=== PATIENT | female | born 1995 | race Two or more races ===

== ENCOUNTER 2018-10-24 20:07 | Outpatient (CLI) | payer MEDICAID ==
[2018-10-24 21:03] LABS: AMORPHOUS SEDIMENT,URINE TRACE /HPF; APPEARANCE,URINE CLOUDY; BILIRUBIN,URINE NEGATIVE (NEGATIVE); COLOR,URINE YELLOW; GLUCOSE, URINE NEGATIVE (NEGATIVE); KETONES,URINE NEGATIVE (NEGATIVE); LEUKOCYTE ESTERASE,URINE NEGATIVE (NEGATIVE); NITRITE,URINE NEGATIVE (NEGATIVE); PROTEIN,URINE NEGATIVE (NEGATIVE); URINE SPECIFIC GRAVITY 1.019; UROBILINOGEN,URINE NEGATIVE mg/dL (<2.0)
[2018-10-24 21:25] LABS: URINE AMPHETAMINES SCREEN NEGATIVE; URINE BARBITURATES SCREEN NEGATIVE; URINE BENZODIAZEPINES SCREEN NEGATIVE; URINE MARIJUANA (THC) SCREEN NEGATIVE; URINE PHENCYCLIDINE SCREEN NEGATIVE
[2018-10-24 21:26] LABS: URINE COCAINE SCREEN NEGATIVE
[2018-10-24 21:27] LABS: URINE METHADONE SCREEN NEGATIVE
== END 2018-10-24 21:36 | disposition home or self-care (01) ==
LOC: LC 20:07
PROVIDERS: ATTEND Obstetrics & Gynecology
PROC: 4A1HXCZ Monitoring of Products of Conception, Cardiac Rate, External Approach (ICD-10-PCS; principal; 2018-10-24)
DX: O47.02 False labor before 37 completed weeks of gestation, second trimester (principal); Z3A.22 22 weeks gestation of pregnancy
CPT/HCPCS: 80307; 81001

== ENCOUNTER 2019-03-02 05:23 | Inpatient (IN) | payer MEDICAID ==
[2019-03-02 06:05] LABS: APPEARANCE,URINE CLEAR; BILIRUBIN,URINE NEGATIVE (NEGATIVE); COLOR,URINE STRAW; GLUCOSE, URINE NEGATIVE (NEGATIVE); KETONES,URINE NEGATIVE (NEGATIVE); LEUKOCYTE ESTERASE,URINE NEGATIVE (NEGATIVE); NITRITE,URINE NEGATIVE (NEGATIVE); PROTEIN,URINE NEGATIVE (NEGATIVE); URINE SPECIFIC GRAVITY 1.005; UROBILINOGEN,URINE NEGATIVE mg/dL (<2.0)
[2019-03-02 06:21] LABS: URINE AMPHETAMINES SCREEN NEGATIVE; URINE BARBITURATES SCREEN NEGATIVE; URINE BENZODIAZEPINES SCREEN NEGATIVE; URINE COCAINE SCREEN NEGATIVE; URINE MARIJUANA (THC) SCREEN NEGATIVE; URINE METHADONE SCREEN NEGATIVE; URINE PHENCYCLIDINE SCREEN NEGATIVE
--- NOTE | 2019-03-02 07:27 | RADIOLOGY REPORT (SQ) ---
Ultrasound OB limited on 03/02/2019 at 7:06 AM CLINICAL INDICATION: Suspected rupture of membranes, evaluate amniotic fluid index COMPARISON: None FINDINGS: Limited sonographic imaging is performed throughout the pelvis by transabdominal approach. Single living intrauterine fetus is noted in cephalic presentation. Cervical length measures approximately 3.1 cm. Placenta is fundal in location with no evidence of placenta previa or abruption. Positive cardiac activity is noted with a heart rate of 141 bpm. Oligohydramnios is noted with amniotic fluid index of only 4.4 cm. measurements for dates were not performed. No other gross abnormality is noted. IMPRESSION: 1. Single living intrauterine fetus in cephalic presentation. 2. Oligohydramnios with amniotic fluid index of 4.4 cm.
[2019-03-02] MEDS ORDERED: RINGERS SOLUTION,LACTATED 300 ML IV ONE (08:11)
[2019-03-02] MEDS ORDERED: OXYTOCIN/NORMAL SALINE 20 UNIT/1,000 ML RTUINJ IV PRN ×2 (08:11→20:49)
[2019-03-02] MEDS ORDERED: PENICILLIN G-K 5 MILLION UNIT VIAL IV ONE (08:12)
[2019-03-02] MEDS ORDERED: PENICILLIN G-K 5 MILLION UNIT VIAL ONE ×3 (08:15→16:21)
[2019-03-02 08:51] LABS: ABSOLUTE BASOPHILS # (AUTO) 0.1 10^3/uL (0.0-0.2); ABSOLUTE EOSINOPHILS # (AUTO) 0.2 10^3/uL (0.0-0.6); ABSOLUTE LYMPHOCYTES (AUTO) 2.4 10^3/uL (0.5-4.7); ABSOLUTE MONOCYTES (AUTO) 0.6 10^3/uL (0.1-1.4); ABSOLUTE NEUT (AUTO) 9.1 10^3/uL (1.7-8.2); BASOPHILS % (AUTO) 0.8 % (0-2); EOSINOPHILS % (AUTO) 1.3 % (0-6); HEMATOCRIT 35.6 % (36.0-47.0); LYMPHOCYTES % (AUTO) 19.6 % (13-45); MEAN CORPUSCULAR HEMOGLOBIN 30.8 pg (27.0-33.4); MEAN CORPUSCULAR HGB CONC 33.9 g/dL (32.0-36.0); MEAN CORPUSCULAR VOLUME 91 fl (80-97); MONOCYTES % (AUTO) 5.2 % (3-13); PLATELET COUNT 173 10^3/uL (150-450); RED BLOOD COUNT 3.92 10^6/uL (3.72-5.28); RED CELL DISTRIBUTION WIDTH 13.8 % (11.5-14.0); SEGMENTED NEUTROPHILS % (AUTO) 73.1 % (42-78); TOTAL CELLS COUNTED % (AUTO) 100 %; WHITE BLOOD COUNT 12.4 10^3/uL (4.0-10.5)
--- NOTE | 2019-03-02 09:50 | Admission Physical ---
Datetime Report Generated by CPN: 03/02/2019 09:50 CURRENT ADMISSION Hx Assessment: The History has been Reviewed and is Current Chief Complaint: Uterine Contractions Indication for Induction: Not Applicable Admit Impression : Term, Intrauterine Admit Plan: Admit to Unit; Initiate Labor Protocol ALLERGIES Medication Allergies: No Medication Allergies: No Known Allergies (03/02/2019) Latex: No Latex Allergies Food Allergies: lactose Environmental Allergies: none OBSTETRICAL HISTORY EDC: 03/02/2019 00:00 : 1 Para: 0 Term: 0 : 0 SAB: 0 IAB: 0 Livin Gestational Diabetes: No Rh Sensitization: No Incompetent Cervix: No MILA: No Infertility: No ART Treatment: No Uterine Anomaly: No IUGR: No Hx Previous C/S: No Macrosomia: No Hx Loss/Stillborn: No PIH: No Hx : No Placenta Previa/Abruption: No Depression/PP Depression: No PTL/PROM: No Post Hemorrhage: No Obstetrical History Comments: G1: current SEE RECORDS Alcohol: No Marijuana : No Cocaine: No Other Illicit Drugs: No Cigarettes: Never Smoker. [id number] MEDICAL HISTORY Diabetes: No Blood Transfusion: No Pulmonary Disease (Asthma, TB): No Breast Disease: No Hypertension: No Character Artist Surgery: No Heart Disease: No Hosp/Surgery: No Autoimmune Disorder: No Anesthetic Complications: No Kidney Disease: No Abnormal Pap Smear: Yes Neuro/Epilepsy: No Psychiatric Disorders: No Other Medical Diseases: No Hepatitis/Liver Disease: No Significant Family History: No Varicosities/Phlebitis: No Trauma/Violence : No Thyroid Dysfunction: No Medical History Comments: - HPV INFECTIOUS HISTORY Gonorrhea: No Genital Herpes: No Chlamydia: No Tuberculosis: No Syphilis: No Hepatitis: No HIV/AIDS Exposure: No Rash or Viral Illness: No HPV: Yes Infectious History Comments: 08/2018: ASCUS with HR HPV PHYSICAL EXAM General: Normal HEENT: Normal Neurologic: Normal Thyroid: Normal Heart: Normal Lungs: Normal Breast: Normal Back: Normal Abdomen: Normal Genitourinary Exam: Normal Extremities: Normal DTRs: Normal Pelvic Type: Adequate Physical Exam Comments: G1 ASCUS Pap, + HPV GBS + FETUS A EGA: 40.0 Monitoring: External US Variability: Moderate 6-25bpm Accelerations: 15X15 Decelerations: None Admit Comment: Admit to LD in early labor, irreg uc's Pitocin augmentation if needed Monitor, anticipate PLANS FOR LABOR AND DELIVERY Labor and Delivery: None Pain Management: None Feeding Preference: Breast Benefit of Breast Feed Discussed: Yes Circumcision: N/A INFORMED CONSENT Assignment: Meryl Sarah De Jesuse, Signature: with User ID: [email or web address] : with User ID: [email or web address]
[2019-03-02] MEDS ORDERED: MISOPROSTOL 0.2 MG TABLET ONE (09:56)
[2019-03-02] MEDS ORDERED: OXYTOCIN 10 UNIT/ML VIAL ONE (09:56)
[2019-03-02] MEDS ORDERED: LIDOCAINE 1% INJ-PF (10 MG/ML) 30 ML SDV ONE (09:56)
[2019-03-02] MEDS ORDERED: OXYTOCIN/NORMAL SALINE 20 UNIT/1,000 ML RTUINJ ONE (09:56)
[2019-03-02] MEDS: RINGERS SOLUTION,LACTATED 1,000 ML IV PRN ×2 (10:04→16:29)
[2019-03-02] MEDS: PENICILLIN G-K 5 MILLION UNIT VIAL IV SCH ×2 (12:15→16:25)
[2019-03-02] MEDS ORDERED: BUPIVACAINE HCL 0.25 % INJ/PF (2.5 MG/1 ML) 30 ML VIAL ONE (13:35)
[2019-03-02] MEDS ORDERED: FENTANYL/BUPIVACAINE/NS/PF 300 MCG/150 ML RTUINJ EPI ONE (13:35)
[2019-03-02] MEDS ORDERED: EPHEDRINE SULFATE INJ 50 MG/1 ML AMPULE ONE (13:35)
[2019-03-02] MEDS ORDERED: ZOLPIDEM TARTRATE 5 MG TABLET PO PRN (20:49)
[2019-03-02] MEDS ORDERED: DIPH/PERTUSS(ACELL)/TETANUS VAC/PF 0.5 ML SYR (>=10YO) IM PRN (20:49)
[2019-03-02] MEDS ORDERED: DIBUCAINE 1% OINTMENT 56 GM TP PRN (20:49)
[2019-03-02] MEDS ORDERED: ACETAMINOPHEN WITH CODEINE #3 TABLET PO PRN ×2 (20:49)
[2019-03-02] MEDS ORDERED: BENZOCAINE/MENTHOL AEROSOL SPRAY 56 ML TOP PRN (20:49)
--- NOTE | 2019-03-02 21:21 | Warning Signs in Babies ---
VOD Warning Signs Datetime Report Generated by [facility]: 03/02/2019 21:21 VOD#608 -Warning Signs in Babies: Needs to be viewed. (10/24/2018 20:11:Nazanin Mesa RN)
--- NOTE | 2019-03-02 21:34 | Warning Signs in Babies ---
VOD Warning Signs Datetime Report Generated by [facility]: 03/02/2019 21:34 VOD#608 -Warning Signs in Babies: Viewed with Parent(s)/Family (10/24/2018 20:11:Nazanin Mesa RN)
--- NOTE | 2019-03-02 21:35 | Delivery Summary ---
Del Sum A-C Datetime Report Generated by CPN: 03/02/2019 21:35 DELIVERY PERSONNEL DELIVERY PERSONNEL: [id number] Delivery Doctor:: Meryl Kennedy MD Labor and Delivery Nurse:: Nazanin Mesa RNmobile lab technician Nurse:: Dania Rosa RN Nursery Nurse:: Silvia Zarate RN MSN Satellite Communications Operator/SUIT ATTENDANT: Geno Irving, ST MATERNAL INFORMATION Delivery Anesthesia: Epidural Medications After Delivery: Pitocin Bolus-Please Comment; Cytotec 1000mcg Per Rectum/Vagina Meds After Delivery Comment: pitocin 20 units in1 L NS bolusing per order Delivery QBL: 300 Maternal Complications: None Provider Comments: of a viable female at 2009 w/ an JEOVANNY presentation w/ shoulder dystocia resolved w/ suprpubic pressure; APGARS 8, 9; 2nd deg midline episiotomy w/ repair LABOR SUMMARY EDC: 03/02/2019 00:00 No. Babies in Womb: 1 Attempted: No Labor Anesthesia: Epidural LABOR INFORMATION Reason for Induction: Oligohydramnios Onset of Labor: 03/02/2019 13:20 Complete Dilatation: 03/02/2019 18:43 Oxytocin: Induction Group B Beta Strep: positive Antibiotics # of Doses: 3 Antibiotics Time of Last Dose: 1624 Name of Antibiotic Given: PCN Steroids Given: None Reason Steroids Not Administered: Not Applicable MEMBRANES Membranes Rupture Method: Spontaneous Rupture of Membranes: 03/02/2019 05:00 Length of Rupture (hr): 15.17 Amniotic Fluid Color: Light Meconium Amniotic Fluid Amount: Small Amniotic Fluid Odor: Normal STAGES OF LABOR Stage 1 hr: 5 Stage 1 min: 23 Stage 2 hr: 1 Stage 2 min: 27 Stage 3 hr: 0 Stage 3 min: 2 Total Time in Labor hr: 6 Total Time in Labor min: 52 VAGINAL DELIVERY Episiotomy: Median Laceration #1: Perineal Laceration Extension #1: Second Degree Laceration Repair: Yes Laceration Repair Note: Episiotomy repaired with 3-0 vicryl Sponge Count Correct: Yes Sharps Count Correct: Yes CSECTION DELIVERY Primary Indication: N/A Secondary Indication: N/A CSection Incidence: N/A Labor: N/A Elective: N/A CSection Incision: N/A BABY A INFORMATION Delivery Date/Time: 03/02/2019 20:10 Method of Delivery: Vaginal Born in Route : No : N/A Forceps: N/A Vacuum Extraction: N/A Shoulder Dystocia : Yes SHOULDER DYSTOCIA BABY A Delivery of Head: 03/02/2019 20:09 Time Head to Delivery : 1.0 1st Intervention to Resolve: Episiotomy 2nd Intervention to Resolve: McRobert's Maneuver 3rd Intervention to Resolve: Suprapubic Pressure Verify NO Fundal Pressure: No Fundal Pressure Applied Arm Under Symphisis at Del: Left PRESENTATION/POSITION BABY A Presentation: Cephalic Cephalic Presentation: Vertex Vertex Position: Right Occipital Anterior Breech Presentation: N/A PLACENTA INFORMATION BABY A Placenta Delivery Time : 03/02/2019 20:12 Placenta Method of Delivery: Spontaneous Placenta Status: Delivered SCORES BABY A Heart Rate 1 min: >100 bpm Resp Effort 1 min: Good Cry Reflex Irritability 1 min: Cough or Sneeze or Pulls Away Muscle Tone 1 min: Active Motion Color 1 min: Blue/Pale Resuscitation Effort 1 min: Tactile Stimulation SCORE 1 MIN: 8 Heart Rate 5 min: >100 bpm Resp Effort 5 min: Good Cry Reflex Irritability 5 min: Cough or Sneeze or Pulls Away Muscle Tone 5 min: Active Motion Color 5 min: Body [place], Extremities Blue Resuscitation Effort 5 min: Tactile Stimulation SCORE 5 MIN: 9 INFANT INFORMATION BABY A Gestational Age at Delivery: 40.0 Gestational Status: Full Term- 39- 40.6 Weeks Infant Outcome : Liveborn Condition : Stable Infant Sex: Female IDENTIFICATION BABY A Infant Verification Date/Time: 03/02/2019 20:18 ID Band Number: [id number] Mother's Name Verified: Yes Infant RN Verifying Infant: Radha DINA Rosa Additional Verifying Personnel: US Malorie WEIGHT/LENGTH BABY A Infant Birthweight (gm): 3191 Infant Weight (lb): 7 Infant Weight (oz): 1 Length (in): 20.00 Infant Length (cm): 50.80 CORD INFORMATION BABY A No. Cord Vessels: 3 Nuchal Cord : N/A Cord Blood Taken: Yes-For Eval (Mom's Blood Type - or O+) Suction: None ASSESSMENT BABY A Skin to Skin: Yes BABY B INFORMATION : N/A SIGNATURES Signature: with User ID: [email or web address]
[2019-03-03] MEDS: IBUPROFEN 800 MG TABLET PO SCH ×4 (00:40→22:42)
[2019-03-03] MEDS: PENICILLIN G-K 5 MILLION UNIT VIAL IV SCH (08:28)
[2019-03-03 08:53] LABS: HEMATOCRIT 32.6 % (36.0-47.0); MEAN CORPUSCULAR HEMOGLOBIN 30.4 pg (27.0-33.4); MEAN CORPUSCULAR HGB CONC 33.6 g/dL (32.0-36.0); MEAN CORPUSCULAR VOLUME 90 fl (80-97); PLATELET COUNT 161 10^3/uL (150-450); RED BLOOD COUNT 3.61 10^6/uL (3.72-5.28); RED CELL DISTRIBUTION WIDTH 13.7 % (11.5-14.0); WHITE BLOOD COUNT 16.2 10^3/uL (4.0-10.5)
[2019-03-03] MEDS: PRENATAL VITAMIN W DHA CAPSULE PO SCH (10:35)
[2019-03-03] MEDS: SENNOSIDES/DOCUSATE 8.6-50 MG 1 EACH TABLET PO SCH (10:36)
[2019-03-03] MEDS: FERROUS SULFATE 325 MG TABLET PO SCH ×2 (10:36→18:00)
[2019-03-03] MEDS: DOCUSATE SODIUM 100 MG CAPSULE PO SCH ×2 (10:36→18:00)
--- NOTE | 2019-03-03 10:59 | PDOC PROGRESS REPORT ---
Subjective-OB Progress Note for:: 03/03/19 Subjective: 24yo G1 now P1 s/p ppd1. Ambulating and voiding without difficulty. Reports pain well controlled with medication. Denies any concerns today Physical Exam (OB) Vital Signs: Temp Pulse Resp BP Pulse Ox 98.6 F 78 14 107/53 L 97 03/03/19 08:21 03/03/19 08:21 03/03/19 08:21 03/03/19 08:21 03/03/19 08:21 Intake & Output 03/02/19 03/03/19 03/04/19 06:59 06:59 06:59 Intake Total 1002 1000 Balance 1002 1000 Weight 67.7 kg - General General Appearance: Appears well In distress: None - PIH/Pre-Eclampsia Headache: Absent Epigastric Pain: No Visual Changes: No - Episiotomy/Laceration Site Condition: Well Approximated - Lochia Lochia Amount: Scant < 10 ml Lochia Color: Rubra/Red - Abdomen Description: Soft Hernia Present: No Fundal Description: Firm, Midline Fundal Height: u/u - u/2 - Respiratory Respiratory Status: No respiratory distress Chest Status: Nontender - Extremities Upper extremity: Normal inspection Lower extremities: Normal inspection - Neurological Cognition: Normal Orientation: AAOx4 - Psychological Associated symptoms: Normal affect, Normal mood Objective-Diagnostic Laboratory: 03/03/19 08:11 03/03/19 08:11 WBC 16.2 H RBC 3.61 L Hgb 11.0 L Hct 32.6 L MCV 90 MCH 30.4 MCHC 33.6 RDW 13.7 Plt Count 161 Assessment and Plan(PN) - Assessment and Plan (1) Shoulder dystocia during labor and delivery, delivered Is this a current diagnosis for this admission?: Yes Plan: delivered (2) Obstetric vaginal laceration with second degree perineal laceration Is this a current diagnosis for this admission?: Yes Plan: laceration from median episiotomy-continue to monitor for s/s of infection (3) Vaginal delivery Is this a current diagnosis for this admission?: Yes Plan: Routine pp care - Time Spent with Patient Time with patient: Less than 15 minutes Medications reviewed and adjusted accordingly: Yes - Disposition Anticipated Discharge: Home Within: within 24 hours
[2019-03-04] MEDS: IBUPROFEN 800 MG TABLET PO SCH (06:16)
[2019-03-04 08:12] VITALS: BP 107/51
--- NOTE | 2019-03-04 09:30 | PDOC PROGRESS REPORT ---
Subjective-OB Progress Note for:: 03/04/19 Subjective: Doing well, no c/o, ready to go home, son at BS, breast feeding, voiding, scant bleeding Physical Exam (OB) Vital Signs: Temp Pulse Resp BP Pulse Ox 97.3 F 76 14 107/51 L 100 03/04/19 09:04 03/04/19 09:04 03/04/19 09:04 03/04/19 09:04 03/04/19 09:04 Intake & Output 03/03/19 03/04/19 03/05/19 06:59 06:59 06:59 Intake Total 1002 1400 Balance 1002 1400 - PIH/Pre-Eclampsia Headache: Absent Epigastric Pain: No Visual Changes: No - Lochia Lochia Amount: Scant < 10 ml Lochia Color: Rubra/Red - Abdomen Description: Soft Hernia Present: No Fundal Description: Firm, Midline Fundal Height: u/u - u/2 Objective-Diagnostic Laboratory: 03/03/19 08:11 Assessment and Plan(PN) - Assessment and Plan (1) Shoulder dystocia during labor and delivery, delivered Is this a current diagnosis for this admission?: Yes (2) Obstetric vaginal laceration with second degree perineal laceration Is this a current diagnosis for this admission?: Yes (3) Vaginal delivery Is this a current diagnosis for this admission?: Yes - Time Spent with Patient Time with patient: Less than 15 minutes Medications reviewed and adjusted accordingly: Yes - Disposition Anticipated Discharge: Home Within: within 24 hours
--- NOTE | 2019-03-04 09:35 | PDOC DISCHARGE SUMMARY ---
Impression - Admit/DC Date/PCP Admission Date/Primary Care Provider: 03/02/19 08:13 EDDY Azeem FERNANDO DIGNA, Discharge Date: 03/04/19 - Discharge Diagnosis (1) Shoulder dystocia during labor and delivery, delivered Is this a current diagnosis for this admission?: Yes (2) Obstetric vaginal laceration with second degree perineal laceration Is this a current diagnosis for this admission?: Yes (3) Vaginal delivery Is this a current diagnosis for this admission?: Yes - Additional Information Resuscitation Status: Full Code Discharge Diet: Regular Discharge Activity: Balance Activity w/Rest, No Lifting Over 10 Pounds, No tub bath Referrals: [facility] [Provider Group] (Please call and schedule a 4 week follow up. ) Home Medications: Vits96/Iron Fum/Folic [ Tablet] 1 each PO DAILY 10/24/18 HPI Gestational Age: 40 Reason(s) for Admission: Induction of Labor, Group B Strep Positive Admission Note: Oligohydramnios Procedures: NST, Ultrasound Intrapartum Procedure(s): Spontaneous Vaginal Delivery, Episiotomy Intrapartum Procedure Note: shoulder dystocia resolved with suprapubic pressure, viable female, 8, 9 Complication(s): Laceration-Perineal Laceration-Degree: 2nd Hospital Course Hospital Course: routine Results Laboratory Results: WBC 16.2 10^3/uL (4.0-10.5) H 03/03/19 08:11 RBC 3.61 10^6/uL (3.72-5.28) L 03/03/19 08:11 Hgb 11.0 g/dL (12.0-15.5) L 03/03/19 08:11 Hct 32.6 % (36.0-47.0) L 03/03/19 08:11 MCV 90 fl (80-97) 03/03/19 08:11 MCH 30.4 pg (27.0-33.4) 03/03/19 08:11 MCHC 33.6 g/dL (32.0-36.0) 03/03/19 08:11 RDW 13.7 % (11.5-14.0) 03/03/19 08:11 Plt Count 161 10^3/uL (150-450) 03/03/19 08:11 Lymph % (Auto) 19.6 % (13-45) 03/02/19 08:34 [place]pson % (Auto) 5.2 % (3-13) 03/02/19 08:34 Eos % (Auto) 1.3 % (0-6) 03/02/19 08:34 Baso % (Auto) 0.8 % (0-2) 03/02/19 08:34 Absolute Neuts (auto) 9.1 10^3/uL (1.7-8.2) H 03/02/19 08:34 Absolute Lymphs (auto) 2.4 10^3/uL (0.5-4.7) 03/02/19 08:34 Absolute Monos (auto) 0.6 10^3/uL (0.1-1.4) 03/02/19 08:34 Absolute Eos (auto) 0.2 10^3/uL (0.0-0.6) 03/02/19 08:34 Absolute Basos (auto) 0.1 10^3/uL (0.0-0.2) 03/02/19 08:34 Seg Neutrophils % 73.1 % (42-78) 03/02/19 08:34 Urine Color STRAW 03/02/19 05:30 Urine Appearance CLEAR 03/02/19 05:30 Urine pH 8.0 (5.0-9.0) 03/02/19 05:30 Ur Specific [place]lan 1.005 03/02/19 05:30 Urine Protein NEGATIVE mg/dL (NEGATIVE) 03/02/19 05:30 Urine Glucose (UA) NEGATIVE mg/dL (NEGATIVE) 03/02/19 05:30 Urine Ketones NEGATIVE mg/dL (NEGATIVE) 03/02/19 05:30 Urine Blood MODERATE (NEGATIVE) H 03/02/19 05:30 Urine Nitrite NEGATIVE (NEGATIVE) 03/02/19 05:30 Urine Bilirubin NEGATIVE (NEGATIVE) 03/02/19 05:30 Urine Urobilinogen NEGATIVE mg/dL (<2.0) 03/02/19 05:30 Ur Leukocyte Esterase NEGATIVE (NEGATIVE) 03/02/19 05:30 Urine Ascorbic Acid NEGATIVE (NEGATIVE) 03/02/19 05:30 Amniotic Ferning Test FERN PATTERN ABSENT (ABSENT) 03/02/19 06:15 Membranes Rupture NEGATIVE (NEGATIVE) 03/02/19 05:35 Urine Opiates Screen NEGATIVE 03/02/19 05:30 Urine Methadone Screen NEGATIVE 03/02/19 05:30 Ur Barbiturates Screen NEGATIVE 03/02/19 05:30 Ur Phencyclidine Scrn NEGATIVE 03/02/19 05:30 Ur Amphetamines Screen NEGATIVE 03/02/19 05:30 U Benzodiazepines Scrn NEGATIVE 03/02/19 05:30 Urine Cocaine Screen NEGATIVE 03/02/19 05:30 U Marijuana (THC) Screen NEGATIVE 03/02/19 05:30 RPR NONREACTIVE (NONREACTIVE) 03/02/19 08:34 Blood Type O POSITIVE 03/02/19 08:34 Antibody Screen NEGATIVE 03/02/19 08:34 Impressions: Obstetrics Ultrasound 03/02/19 00:00 IMPRESSION: 1. Single living intrauterine fetus in cephalic presentation. 2. Oligohydramnios with amniotic fluid index of 4.4 cm. Plan Health Concerns: routine Plan of Treatment: home with baby Goals: routine PP course Time Spent: Less than 30 Minutes
[2019-03-04] MEDS: FERROUS SULFATE 325 MG TABLET PO SCH (09:44)
[2019-03-04] MEDS: PRENATAL VITAMIN W DHA CAPSULE PO SCH (09:44)
[2019-03-04] MEDS: DOCUSATE SODIUM 100 MG CAPSULE PO SCH (09:44)
[2019-03-04] MEDS: SENNOSIDES/DOCUSATE 8.6-50 MG 1 EACH TABLET PO SCH (09:44)
[2019-03-04] MEDS ORDERED: MEASLES,MUMPS&RUBELLA VACC/PF 0.5 ML VIAL SUBCUT PRN (11:24)
== END 2019-03-04 13:13 | disposition home or self-care (01) | DRG 807 ==
LOC: LC 05:23 → LR 08:13 → 2S 23:37
PROVIDERS: ADMIT Obstetrics & Gynecology; ATTEND Obstetrics & Gynecology
PROC: 10E0XZZ Delivery of Products of Conception, External Approach (ICD-10-PCS; principal; 2019-03-02)
PROC: 0KQM0ZZ Repair Perineum Muscle, Open Approach (ICD-10-PCS; 2019-03-02)
PROC: 3E033VJ Introduction of Other Hormone into Peripheral Vein, Percutaneous Approach (ICD-10-PCS; 2019-03-02)
DX: O41.03X0 Oligohydramnios, third trimester, not applicable or unspecified (principal); Z37.0 Single live birth; O66.0 Obstructed labor due to shoulder dystocia; O70.1 Second degree perineal laceration during delivery; O99.824 Streptococcus B carrier state complicating childbirth; Z3A.40 40 weeks gestation of pregnancy
CPT/HCPCS: 36415; 76815; 80307; 81005; 84112; 85025; 85027; 86592; 86850; 86900; 86901; 90707; J2540; J2590; J3010; J3490; Q0114